=== PATIENT | male | born 1965 | race Caucasian/White ===

== ENCOUNTER 2020-01-31 07:40 | Outpatient (CLI) | payer OTHER | END 2020-01-31 23:59 | disposition home or self-care (01) | LOC: CFH 07:40 | PROVIDERS: ATTEND Internal Medicine Cardiovascular Disease | DX: I25.10 Atherosclerotic heart disease of native coronary artery without angina pectoris (principal); I10 Essential (primary) hypertension | CPT/HCPCS: 93306 ==

== ENCOUNTER 2020-11-02 07:50 | Outpatient (CLI) | payer OTHER ==
[2020-11-02] MEDS ORDERED: LIDOCAINE 1%, 10ML ONE (08:15)
== END 2020-11-02 23:59 | disposition home or self-care (01) ==
LOC: RAD 07:50
PROVIDERS: ATTEND Nurse Practitioner Primary Care
DX: C90.30 Solitary plasmacytoma not having achieved remission (principal); B19.20 Unspecified viral hepatitis C without hepatic coma; J45.909 Unspecified asthma, uncomplicated; C41.9 Malignant neoplasm of bone and articular cartilage, unspecified; F17.210 Nicotine dependence, cigarettes, uncomplicated; Z98.890 Other specified postprocedural states; Z79.899 Other long term (current) drug therapy
CPT/HCPCS: 20206; 76942; 88305; 88341; 88342; J3490; 10005

== ENCOUNTER 2020-12-06 14:28 | Outpatient (CLI) | payer OTHER ==
[2020-12-06 15:04] LABS: BASOPHILS % (AUTO) 1 % (0-1); EOSINOPHILS % (AUTO) 4 % (1-7); LYMPHOCYTES % (AUTO) 36 % (22-44); MEAN CORPUSCULAR HEMOGLOBIN 30.3 pg (27.5-34.5); MEAN CORPUSCULAR HGB CONC 33.7 g/dL (33.2-36.2); MEAN PLATELET VOLUME 6.9 fL (7.4-10.4); MONOCYTES % (AUTO) 10 % (2-9); NEUTROPHILS % (AUTO) 49 % (42-75); PLATELET COUNT 290 x10^3/uL (130-400); RED BLOOD COUNT 4.67 x10^6/uL (4.38-5.82); RED CELL DISTRIBUTION WIDTH 14.2 % (9.4-14.8)
[2020-12-06 15:05] LABS: MD NO
[2020-12-06 15:16] LABS: ALANINE AMINOTRANSFERASE 30 U/L (12-78); ALBUMIN 4.1 g/dL (3.4-5.0); ANION GAP 8 mmol/L (5-15); CALCIUM 9.2 mg/dL (8.5-10.1); CHLORIDE 104 mmol/L (98-107); CREATININE 1.08 mg/dL (0.7-1.3)
[2020-12-06 15:18] LABS: ALKALINE PHOSPHATASE 43 U/L (45-117); BILIRUBIN,TOTAL 0.4 mg/dL (0.2-1.0); TOTAL PROTEIN 8.1 g/dL (6.4-8.2)
[2020-12-06] MEDS ORDERED: OMNIPAQUE 350 MG/ML, 150 ML BOTTLE ONE (16:28)
== END 2020-12-06 23:59 | disposition home or self-care (01) ==
LOC: RAD 14:28
PROVIDERS: ATTEND Internal Medicine
DX: C90.20 Extramedullary plasmacytoma not having achieved remission (principal); K76.0 Fatty (change of) liver, not elsewhere classified; K57.30 Diverticulosis of large intestine without perforation or abscess without bleeding; K80.20 Calculus of gallbladder without cholecystitis without obstruction; E04.9 Nontoxic goiter, unspecified; N28.1 Cyst of kidney, acquired; R59.0 Localized enlarged lymph nodes
CPT/HCPCS: 70491; 71260; 74177; 80053; 82232; 83883; 84155; 84165; 85025; Q9967

== ENCOUNTER 2021-02-27 06:40 | Day surgery (SDC) | payer OTHER ==
[~2021-02-27] VITALS: Ht 177.8 cm; Wt 78.0 kg
[2021-02-27 07:12] VITALS: BP 114/78
[2021-02-27 07:24] LABS: BASOPHILS % (AUTO) 1 % (0-1); EOSINOPHILS % (AUTO) 9 % (1-7); LYMPHOCYTES % (AUTO) 22 % (22-44); MEAN CORPUSCULAR HEMOGLOBIN 30.2 pg (27.5-34.5); MEAN CORPUSCULAR HGB CONC 33.3 g/dL (33.2-36.2); MEAN PLATELET VOLUME 8.9 fL (7.4-10.4); MONOCYTES % (AUTO) 9 % (2-9); NEUTROPHILS % (AUTO) 60 % (42-75); PLATELET COUNT 200 x10^3/uL (130-400); RED BLOOD COUNT 4.36 x10^6/uL (4.38-5.82)
[2021-02-27 07:25] LABS: MD NO
[2021-02-27] MEDS ORDERED: SODIUM CHLORIDE 0.9% 1,000 ML IV SCH (07:30)
[2021-02-27] MEDS ORDERED: FENTANYL PF 100 MCG/2ML ONE (08:18)
[2021-02-27] MEDS ORDERED: FLUMAZENIL 0.1 MG/1 ML, 5ML ONE (08:18)
[2021-02-27] MEDS ORDERED: NALOXONE 1 MG/ML, 2ML ONE (08:18)
[2021-02-27] MEDS ORDERED: MIDAZOLAM 1 MG/ML, 5ML ONE ×2 (08:18)
== END 2021-02-27 09:35 | disposition home or self-care (01) ==
LOC: OUT 06:40
PROVIDERS: ATTEND Internal Medicine
DX: C90.20 Extramedullary plasmacytoma not having achieved remission (principal); C79.51 Secondary malignant neoplasm of bone; D64.9 Anemia, unspecified; I10 Essential (primary) hypertension; E11.9 Type 2 diabetes mellitus without complications; E78.5 Hyperlipidemia, unspecified; Z79.4 Long term (current) use of insulin; Z79.82 Long term (current) use of aspirin; Z79.899 Other long term (current) drug therapy
CPT/HCPCS: 36415; 38222; 77012; 85025; 85060; 85097; 88237; 88264; 88280; 88305; 88311; 88313; 99156; J2250; J3010; J2310